=== PATIENT | female | born 1930 | race Caucasian/White ===

== ENCOUNTER 2016-10-18 11:00 | Inpatient (IN) | payer MEDICARE, BC ==
[~2016-10-18] VITALS: Ht 165.1 cm; Wt 52.9 kg
--- NOTE | ~2016-10-18 | OR ---
PATIENT'S NAME: KENDALL MALONEY [facility] AGE: 85 Y [address] ROOM: [address] [address] LOCATION: [facility] ADMIT DATE: 10/19/2016 OR/Procedure Report DISCHARGE DATE: 10/21/2016 FAMILY PHYSICIAN: Arabella Rivera MD ATTENDING PHYSICIAN: Yazmin Christiansen SURGEON: Yazmin Christiansen MD WELDING MACHINE OPERATOR RESISTANCE: Napoleon Bauman. DATE OF PROCEDURE: 10/19/2016 PREOPERATIVE DIAGNOSIS: Cervical spinal stenosis with spinal cord compression. POSTOPERATIVE DIAGNOSIS: Cervical spinal stenosis with spinal cord compression. PROCEDURES PERFORMED: 1. Anterior cervical diskectomy with decompression of neural elements and foraminotomy at C3-C4. 2. Anterior cervical diskectomy with decompression of neural elements and foraminotomy at C5-C6. 3. Anterior cervical diskectomy with decompression of neural elements and foraminotomy at C6-C7. 4. Structural allograft fusion and morcellized allograft fusion at C3-C4, C5- C6, and C6-C7. 5. Anterior cervical plating with [place] Elite plate at C5-C6 and C6-C7. ANESTHESIA: General. ANESTHESIA PROVIDER: Bolivar Cornelius MD. HISTORY: The patient is an 85-year-old female who presented with left arm weakness and difficulty using left hand. She had imaging studies of her shoulder and her cervical spine. Cervical spine MRI showed severe spinal stenosis at C3-C4, C5-C6, and C6-C7. Surgery was recommended. The above procedures, benefits, and risks were discussed with the patient. With her consent, she was brought to the operating room for surgery. PROCEDURE IN DETAIL: In the operating room, the patient was placed in a supine position. Anesthesia was induced. She was intubated. A roll was placed under her shoulders and her neck was maintained in extension. The area around the right side of the front of her neck was prepped and draped in a sterile fashion. The incision line was marked out along the anterior border of the right sternomastoid muscle. Local anesthesia was infiltrated. The #10 blade was used to open the incision and to divide the platysma. Working along the anterior border of the sternomastoid muscle, the omohyoid muscle was PATIENT'S NAME: KENDALL MALONEY [facility] AGE: 85 Y [address] ROOM: [address] [place], [place] [address] LOCATION: G3N ADMIT DATE: 10/19/2016 OR/Procedure Report DISCHARGE DATE: 10/21/2016 FAMILY PHYSICIAN: Arabella Rivera MD ATTENDING PHYSICIAN: Yazmin Christiansen identified. The space between the omohyoid and sternomastoid muscles was developed until we got to the anterior surface of the spine. The [employer] handheld retractors were used to help with the dissection. Intraoperative x- ray was obtained to confirm that we were at the desired levels. Diskectomy was then carried out at C3-C4, C5-C6, and C6-C7. The technique for the diskectomy was the same for all the levels and will be described for one level as representing all the others. The disk was incised with a #15 blade and the pituitary rongeur was used to pull out disk material. The curette was then used to scrape out more disk, which was again pulled out with a pituitary rongeur. Distraction pins were then inserted into the vertebrae on each side of the disk space and the disk was distracted. This helped to access the depths of the disk space. Microscope was brought in at this point, and under microscopic vision, the deeper reaches of the disk space were accessed and decompressed. Posterior osteophytes were removed. After a thorough decompression of the 2 levels; C3-C4, C5-C6, and C6-C7, the adjacent edges of the vertebrae were burred down with a high-speed drill to expose underlying endplate. Appropriate-sized pieces of allograft bone were selected. These pieces of bone were filled with demineralized bone matrix to facilitate fusion. This is a morcellized allograft fusion. Each piece of bone was then inserted into each of the 3 disk spaces and we had a very snug fit. Next, the [place] Elite plate was used to support the fusion at C5-C6 and C6-7. Irrigation was used to wash out the debris. Another x-ray was obtained to confirm that the graft, screws, and plates were in correct position. Hemostasis was achieved. The incision was closed in layers using appropriate suture materials. Sterile dressing was applied. The patient's anesthesia was reversed. She was extubated and taken to the recovery room to complete her recovery. I was present at and performed every aspect of this procedure, assisted at different times by operating room nurses. There were no apparent intraoperative complications. Swabs, needles, and instruments were all accounted for at the end of the case. Estimated blood loss was less than 200 mL, and there was no reason for blood transfusion. I expect the patient's left arm and hand function to improve with this surgery. MD ALEJANDRA RODRÍGUEZ/modl /[id number] d: 11/10/162039 t: 11/16/16 1614, OPERATIVE SUMMARY
--- NOTE | ~2016-10-18 | DS ---
PATIENT'S NAME: KENDALL MALONEY [facility] AGE: 85 Y [address] ROOM: [address] [address] LOCATION: G3N ADMIT DATE: 10/19/2016 Discharge Summary DISCHARGE DATE: 10/21/2016 FAMILY PHYSICIAN: Arabella Rivera MD ATTENDING PHYSICIAN: Yazmin Christiansen REASON FOR ADMISSION: The patient was a scheduled admission for an elective procedure. The elective procedure was anterior cervical diskectomy with fusion and plating. The patient had presented with left arm weakness. Imaging studies showed spinal cord compression at C3-4, C5-6, and C6-7. TREATMENT RENDERED: On the day of admission, the patient was taken to the operating room and underwent surgery. The procedure was anterior cervical diskectomy with fusion and instrumentation at C3-4, C5-C6, and C6-C7. The surgery was uncomplicated. Her postoperative course was uneventful. The patient continued to improve and by the 21 of October had met all the criteria for dismissal. She was dismissed on that day and will be followed up at the clinic in [place] to see how she is doing. FINAL DIAGNOSIS: Cervical spondylosis with myelopathy, status post anterior cervical diskectomy and fusion. MD NESTOR RODRÍGUEZO/modl /[id number] d: 11/10/162048 t: 11/16/16 1617, DISCHARGE SUMMARY
[2016-10-18] MEDS ORDERED: FISH OIL 1,2001 EAC2 PO (13:09)
[2016-10-18] MEDS ORDERED: ZOCOR20 MG PO (13:09)
[2016-10-18] MEDS ORDERED: ASPIRIN LO-DOSE81 MG PO (13:09)
[2016-10-18] MEDS ORDERED: CENTRUM SILVER1 TAB PO (13:10)
== END 2016-10-21 10:45 | disposition disaster alternative care site (69) | DRG 472 ==
LOC: G3N 10-19 08:49
PROVIDERS: ADMIT Neurological Surgery
PROC: 0RB30ZZ Excision of Cervical Vertebral Disc, Open Approach (ICD-10-PCS; principal; 2016-10-19)
PROC: 0RG20K0 Fusion of 2 or more Cervical Vertebral Joints with Nonautologous Tissue Substitute, Anterior Approach, Anterior Column, Open Approach (ICD-10-PCS; principal; 2016-10-19)
DX: M48.02 Spinal stenosis, cervical region (principal); M47.12 Other spondylosis with myelopathy, cervical region; E78.5 Hyperlipidemia, unspecified; M19.012 Primary osteoarthritis, left shoulder; E55.9 Vitamin D deficiency, unspecified; Z79.82 Long term (current) use of aspirin
CPT/HCPCS: C1713; J0131; J0690; J1100; J2001; J2250; J2270; J2405; J3010; J7030; J7120